=== PATIENT | female | born 1965 | race Caucasian/White ===

== ENCOUNTER → 2017-06-13 | Outpatient (CLI) | payer BC ==
[~2017-06-13] MED LIST: IBUP-1050 PO; LORA-741 PO; LORA5TAB3 PO; MISC1TAB PO; NIAC500T11 PO; SUMA50TA15 PO
== END | disposition home or self-care (01) ==
LOC: C.PAPS 08:13
PROVIDERS: ATTEND Physician Assistant
DX: Z01.419 Encounter for gynecological examination (general) (routine) without abnormal findings (principal)

== ENCOUNTER → 2017-06-13 | Outpatient (CLI) | payer BC ==
[2017-06-13 16:44] LABS: HEMATOCRIT 46.7 % (37-47); MEAN CELL VOLUME 94.3 fL (80-100); MEAN CORPUSCULAR HEMOGLOBIN 30.5 pg (25-34); MEAN CORPUSCULAR HGB CONC 32.3 g/dl (32-36); MEAN PLATELET VOLUME 10.3 fL (7.4-10.4); PLATELET COUNT 328 K/uL (130-400); RED BLOOD COUNT 4.95 M/uL (4.2-5.4); WHITE BLOOD COUNT 5.64 K/uL (4.8-10.8)
[2017-06-13 17:13] LABS: PREG INTERNAL NEGATIVE QC NEG CLEAR BACKGROUND; PREG INTERNAL POSITIVE QC POS CONTROL LINE
== END | disposition home or self-care (01) ==
LOC: C.LAB1850 15:58
PROVIDERS: ATTEND Physician Assistant
DX: N92.6 Irregular menstruation, unspecified (principal)

== ENCOUNTER → 2017-07-05 | Outpatient (CLI) | payer BC | END | disposition home or self-care (01) | LOC: C.CPL 09:20 | PROVIDERS: ATTEND Obstetrics & Gynecology | DX: Z01.818 Encounter for other preprocedural examination (principal) ==

== ENCOUNTER → 2017-08-01 | Day surgery (SDC) | payer BC ==
[2017-07-09 11:29] VITALS: Ht 171.5 cm; Wt 52.3 kg
[~2017-08-01] VITALS: Ht 171.5 cm; Wt 52.3 kg
[~2017-08-01] MED LIST changes: +ATROPINE SULFATE 0.1 MG/ML 5ML SYR IV PRN; +DEXAMETHASONE SOD INJ 4 MG/ML VIAL ONE; +EpHEDrine SULFATE INJ 50 MG/ML AMP IV PRN; +FENTANYL CITRATE INJ 50 MCG/1 ML 2 ML VIAL IV PRN; +FENTANYL CITRATE INJ 50 MCG/1 ML 2 ML VIAL ONE; +IBUPROFEN 200 MG TAB ONE; +IBUPROFEN 600 MG TAB PO PRN; +KETOROLAC TROMETHAMINE 30 MG/ML VIAL IV STA; +KETOROLAC TROMETHAMINE 30 MG/ML VIAL IV. PRN; +KETOROLAC TROMETHAMINE 30 MG/ML VIAL ONE; +LACTATED RINGER'S 1000ML 1,000 ML IV SCH; +LIDOCAINE HCL 2% 2 ML VIAL (20MG/ML) ONE; +MIDAZOLAM HCL 1 MG/ML 2ML VIAL ONE; -MISC1TAB PO; -NIAC500T11 PO; +ONDANSETRON INJ 2 MG/ML 2 ML VIAL IV PRN; +ONDANSETRON INJ 2 MG/ML 2 ML VIAL ONE; +OXYCODONE/ACETAMINOPHEN 5-325 TAB PO PRN; +PROMETHAZINE HCL INJ 6.25 MG in SODIUM CHLORIDE 0.9% 50ML 50 ML IV PRN; +PROPOFOL IV EMULSION 10 MG/ML 20 ML VIAL IV ONE; +SODIUM CHLORIDE 0.9% 1000ML 1,000 ML IV SCH
--- NOTE | 2017-08-01 07:17 | History & Physical Bridge - [place] ---
H&P Re-Evaluation Bridge Note: I have examined the patient, reviewed the History & Physical and in the interval since the performance of the History & Physical I have noted the following changes of clinical significance: No changes noted
--- NOTE | 2017-08-01 08:15 | [facility] Operative Report ---
Operative Report Operative Date Aug 01, 2017. Pre-Operative Diagnosis Abnormal Uterine Bleeding, Abnormal ultrasound findings, encounter for IUD insertion Post-Operative Diagnosis same, endometrial polyp Procedure(s) Performed #1 dilatation and curettage #2 diagnostic hysteroscopy #3 removal of endometrial polyp #4 insertion of Mirena IUD Surgeon Dr. Gina Branham Filter Washer Surgeon(s) none Estimated Blood Loss 0 Findings Uterus sounds to 8 cm. Normal tubal ostia bilaterally. Endometrial polyp emanating from the posterior mid body noted. Saline hysteroscopic fluid deficit 10 cc. Mirena strings trimmed to 2 cm. Fluids (cc crystalloids) 400 Specimens Swab for GC Chlamydia A. Endometrial Curettings Drains none Anesthesia Gen. Complication(s) None Disposition Recovery Room / PACU Indications 51-year-old with abnormal uterine bleeding that included metrorrhagia. She underwent an evaluation that included ultrasound with suspicion for polyp. She was in need of contraceptive method. She desired IUD. She desired surgical management of her endometrial polyp followed by placement of Mirena IUD. Description of Procedure The patient was taken to the operating room and identified. After adequate general anesthesia was obtained she was placed in the dorsolithotomy position and prepped and draped in the usual sterile fashion. The bladder was drained for clear yellow urine. A weighted speculum and anterior retractor were used to visualize the cervix which was grasped in its anterior lip with an Allis clamp. The cervix was sequentially dilated using Hegar dilators to 23. Diagnostic hysteroscope primed with saline media initially placed in the cervical os into the uterine cavity with the findings as noted above. Using a polyp forcep as well as a serrated curet the uterus was cleared of its contents. This was confirmed using the hysteroscope and camera. The Mirena IUD was then readied. Was place in the usual fashion and the strings were trimmed. At this point the procedure was terminated. All vaginal issue is removed. The patient was returned to the supine position and awoken from anesthesia. She was transported to recovery room in stable condition. All sponge lap and needle counts were correct 2. I attest to the content of the Intraoperative Record and any orders documented therein. Any exceptions are noted below.
--- NOTE | 2017-08-01 08:16 | Discharge Instructions ---
Discharge Instructions Date of Service Aug 01, 2017. Admission Reason for Admission: Abnormal Uterine Bleeding Discharge Discharge Diagnosis / Problem: after surgery Discharge Goals Goal(s): Routine recovery after surgery Activity Recommendations Activity Limitations: as noted below . Instructions / Follow-Up Instructions / Follow-Up ACTIVITY RECOMMENDATIONS: * Avoid tampons, douching, hot tubs, pools, and intercourse until bleeding has stopped. * May shower as usual. * No strenuous activity for 24-48 hours. After 24-48 hours, you may do anything you feel like doing (driving and sports are okay). SPECIAL CARE INSTRUCTIONS: Special Diet: * Mild nausea may occur in the immediate post-operative period. * Take clear liquids such as tea, cola or bouillon until all nausea has subsided; you may then resume your normal diet. Special Care: * Light bleeding and vaginal spotting can last from a few days to 3-4 weeks. Call your doctor if bleeding becomes heavier than the heaviest part of your period. * Check your temperature twice a day for one week. If it goes above 100.4 degrees Fahrenheit (38.0 Celsius), notify your doctor. * Call your doctor's office for an appointment for 4 weeks after your surgery. FOLLOW-UP VISIT: Call your doctor's office for an appointment for 4 weeks after your surgery. Current Hospital Diet Patient's current hospital diet: Discharge Diet Recommended Diet: Regular Diet Procedures Procedures Performed: #1 dilatation and curettage #2 diagnostic hysteroscopy #3 removal of endometrial polyp #4 insertion of Mirena IUD Pending Studies Studies pending at discharge: yes List of pending studies: pathology Medical Emergencies . Who to Call and When: Medical Emergencies: If at any time you feel your situation is an emergency, please call 911 immediately. . Non-Emergent Contact Non-Emergency issues call your: Roll Grinder . . "Provider Documentation" section prepared by Regina Branham. . VTE Core Measure Inpt VTE Proph given/why not?: Treatment not indicated
[2017-08-01 09:32] VITALS: BP 131/85; PULSE 66; TEMP 36.4; O2SAT 100
--- NOTE | 2017-08-01 09:48 | Anesthesiology Progress Note ---
Anesthesia Post Op Note Date & Time Aug 01, 2017 at 09:48 Vital Signs Pain Intensity: 4 Vital Signs Past 12 Hours Date Time Temp Pulse Resp B/P (MAP) Pulse Ox O2 Delivery O2 Flow Rate FiO2 08/01/17 09:32 36.4 66 16 131/85 (100) 100 Room Air 08/01/17 09:02 36.2 56 16 116/76 (89) 99 Room Air 08/01/17 08:56 36.5 121/79 08/01/17 08:54 57 10 08/01/17 08:54 59 10 99 08/01/17 08:51 116/86 08/01/17 08:49 52 14 08/01/17 08:49 52 14 98 08/01/17 08:46 122/86 08/01/17 08:44 67 11 98 08/01/17 08:44 66 11 08/01/17 08:41 112/82 08/01/17 08:39 68 16 100 08/01/17 08:39 65 16 08/01/17 08:36 113/82 08/01/17 08:34 56 10 08/01/17 08:34 54 10 100 08/01/17 08:31 118/87 08/01/17 08:29 67 18 99 08/01/17 08:29 65 18 08/01/17 08:26 117/85 08/01/17 08:24 70 11 08/01/17 08:24 68 11 99 08/01/17 08:21 111/80 08/01/17 08:20 115/79 08/01/17 08:19 36.2 65 12 115/79 99 Mask 6 08/01/17 06:47 36.6 74 16 121/75 (90) 97 Room Air Notes Mental Status: alert / awake / arousable, participated in evaluation Pt Amnestic to Procedure: Yes Nausea / Vomiting: adequately controlled Pain: adequately controlled Airway Patency, RR, SpO2: stable & adequate BP & HR: stable & adequate Hydration State: stable & adequate Anesthetic Complications: no major complications apparent
[2017-08-03 13:40] LABS: CHLAMYDIA TRACH RNA*** NOT DETECTED (NOT DETECTED); GC (NEIS GONORRHOEAE)RNA** NOT DETECTED (NOT DETECTED)
== END | disposition home or self-care (01) ==
LOC: X.SURG 06:35
PROVIDERS: ATTEND Obstetrics & Gynecology
DX: N93.9 Abnormal uterine and vaginal bleeding, unspecified (principal); N92.6 Irregular menstruation, unspecified; N84.0 Polyp of corpus uteri; E78.5 Hyperlipidemia, unspecified; Z80.0 Family history of malignant neoplasm of digestive organs